=== PATIENT | female | born 1995 | race Caucasian/White ===

== ENCOUNTER 2017-03-20 23:56 | Emergency (ER) | payer MEDICAID ==
[2017-03-21 00:05] VITALS: BP 116/79; PULSE 83; RESP 20; TEMP 98.3; O2SAT 98
--- NOTE | 2017-03-21 00:49 | C.PDOC ---
History Of Present Illness Patient is a 21 year old female who presents to the ER with a complaint of eye redness, itchiness and a dry cough. Patient reports she has been taking hazel D and zyrtec for seasonal allergies with no relief. Denies any fever, nausea, or vomiting. Time Seen by Provider: 03/21/17 00:26 Chief Complaint (Nursing): ENT Problem History Per: Patient History/Exam Limitations: no limitations Onset/Duration Of Symptoms: Hrs Current Symptoms Are (Timing): Still Present Recent travel outside of the [place]: No Past Medical History Reviewed: Historical Data, Nursing Documentation, Vital Signs Vital Signs: Last Vital Signs Temp 98.3 F 03/20/17 23:59 Pulse 83 03/20/17 23:59 Resp 20 03/21/17 01:07 BP 116/79 03/20/17 23:59 Pulse Ox 98 03/21/17 02:14 - Medical History PMH: No Chronic Diseases Surgical History: No Surg Hx Family History: States: Unknown Family Hx - Social History Hx Tobacco Use: No Hx Alcohol Use: No Hx Substance Use: No - Immunization History Hx Tetanus Toxoid Vaccination: No Hx Influenza Vaccination: No Hx Pneumococcal Vaccination: No Review Of Systems Constitutional: Negative for: Fever Eyes: Positive for: Redness, Other (Itchiness) Respiratory: Positive for: Cough (Dry) Gastrointestinal: Negative for: Nausea, Vomiting Physical Exam - Physical Exam Appears: Well, Non-toxic Skin: Normal Color, Warm, Dry Head: Atraumatic, Normacephalic Eye(s): bilateral: Normal Inspection, Other (Minimal conjunctival injection, no purulrnt d/c) Ear(s): Bilateral: Normal Nose: Other (Enlarged turbinates) Oral Mucosa: Moist Throat: Normal, No Erythema, No Exudate Chest: Symmetrical, No Tenderness Cardiovascular: Rhythm Regular, No Murmur Respiratory: Normal Breath Sounds, No Rales, No Rhonchi, No Wheezing Neurological/Psych: Oriented x3, Normal Speech, Normal Cognition ED Course And Treatment O2 Sat by Pulse Oximetry: 98 (Room air) Pulse Ox Interpretation: Normal Disposition Counseled Patient/Family Regarding: Diagnosis, Need For Followup - Disposition Referrals: [facility] at [facility] [Outside] Disposition: HOME/ ROUTINE Disposition Time: 00:46 Condition: STABLE Additional Instructions: Please follow up with PMD Continue allergy tabs Follow up with PMD Return to ER if worse Prescriptions: Mometasone Furoate [Nasonex] 2 spray NS DAILY #1 bottle Olopatadine 0.1% Opht [Patanol 5 Ml] 1 drop OP BID #1 bottle Instructions: Allergic Rhinitis (ED) - Clinical Impression Clinical Impression: Allergic rhinitis - Scribe Statement The provider has reviewed the documentation as recorded by the Scribe Rasheed Silverman All medical record entries made by the Chidiibdougie were at my direction and personally dictated by me. I have reviewed the chart and agree that the record accurately reflects my personal performance of the history, physical exam, medical decision making, and the department course for this patient. I have also personally directed, reviewed, and agree with the discharge instructions and disposition.
== END 2017-03-21 01:07 | disposition home or self-care (01) ==
LOC: C.ER 23:56
DX: J30.9 Allergic rhinitis, unspecified (principal)

== ENCOUNTER 2017-07-23 16:36 | Emergency (ER) | payer MEDICAID ==
[2017-07-23 16:48] VITALS: BP 106/72; PULSE 83; RESP 20; TEMP 98.8; O2SAT 96
--- NOTE | 2017-07-23 17:40 | C.PDOC ---
History Of Present Illness 21 y/o female presents to ED with complaints of cough intermittently with associated fever and mild sore throat. Patient also reports she ran out of asthma pump medicine and is requesting albuterol refill. Patient denies recent travel, vomiting, diarrhea, chest pain, sob or any other complaints at this time. Time Seen by Provider: 07/23/17 16:55 Chief Complaint (Nursing): Cough, Cold, Congestion History Per: Patient History/Exam Limitations: no limitations Onset/Duration Of Symptoms: Days Current Symptoms Are (Timing): Still Present Past Medical History Reviewed: Historical Data, Nursing Documentation, Vital Signs Vital Signs: Last Vital Signs Temp 98.8 F 07/23/17 16:46 Pulse 83 07/23/17 16:46 Resp 20 07/23/17 16:46 BP 106/72 07/23/17 16:46 Pulse Ox 96 07/23/17 21:35 Family History: States: Unknown Family Hx - Social History Hx Tobacco Use: No Hx Alcohol Use: No Hx Substance Use: No - Immunization History Hx Tetanus Toxoid Vaccination: No Hx Influenza Vaccination: No Hx Pneumococcal Vaccination: No Review Of Systems Except As Marked, All Systems Reviewed And Found Negative. Constitutional: Positive for: Fever. Negative for: Chills ENT: Positive for: Throat Swelling Cardiovascular: Negative for: Chest Pain Respiratory: Positive for: Cough. Negative for: Shortness of Breath Gastrointestinal: Negative for: Nausea, Vomiting, Diarrhea Skin: Negative for: Rash Neurological: Negative for: Weakness, Numbness Physical Exam - Physical Exam Appears: Non-toxic, No Acute Distress Skin: Normal Color, Warm, Dry, No Rash Head: Atraumatic, Normacephalic Eye(s): bilateral: Normal Inspection, PERRL, EOMI Ear(s): Bilateral: Normal Oral Mucosa: Moist Throat: Normal, No Erythema Neck: Normal ROM, Supple Chest: Symmetrical Cardiovascular: Rhythm Regular, No Murmur Respiratory: Normal Breath Sounds, No Rales, No Rhonchi, No Wheezing Gastrointestinal/Abdominal: Soft, No Tenderness, No Guarding, No Rebound Back: Normal Inspection, No CVA Tenderness Extremity: Normal ROM Neurological/Psych: Oriented x3, Normal Speech, Normal Motor, Normal Sensation Gait: Steady ED Course And Treatment O2 Sat by Pulse Oximetry: 96 (RA) Pulse Ox Interpretation: Normal Disposition - Disposition Referrals: [facility] at [facility] [Outside] Disposition: HOME/ ROUTINE Disposition Time: 17:37 Condition: GOOD Additional Instructions: Follow up with the medical doctor within 1-2 days, Return if worsened. 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 - Scribe Statement The provider has reviewed the documentation as recorded by the Suzanna Madrid All medical record entries made by the Suzanna were at my direction and personally dictated by me. I have reviewed the chart and agree that the record accurately reflects my personal performance of the history, physical exam, medical decision making, and the department course for this patient. I have also personally directed, reviewed, and agree with the discharge instructions and disposition.
== END 2017-07-23 17:42 | disposition home or self-care (01) ==
LOC: C.ER 16:36
DX: B34.9 Viral infection, unspecified (principal); J06.9 Acute upper respiratory infection, unspecified

== ENCOUNTER 2017-07-28 20:23 | Emergency (ER) | payer MEDICAID ==
[2017-07-28 21:07] VITALS: RESP 18; TEMP 99.1
--- NOTE | 2017-07-28 21:43 | C.PDOC ---
History Of Present Illness 21 year old female who presents to the ER with a complaint of a cold and not feeling well. Patient was seen one week ago for similar complaint but symptoms persist. Patient reports an associated cough with dark brown sputum and notes she was febrile at home with right ear pain and pink eye today. Denies nausea or vomiting. Time Seen by Provider: 07/28/17 21:07 Chief Complaint (Nursing): Cough, Cold, Congestion History Per: Patient History/Exam Limitations: no limitations Onset/Duration Of Symptoms: Days Current Symptoms Are (Timing): Still Present Location Of Pain: None Sick Contacts (Context): None Associated Symptoms: Cough, Sputum. denies: Nausea, Vomiting Recent travel outside of the [place]: No Past Medical History Reviewed: Historical Data, Nursing Documentation, Vital Signs Vital Signs: Last Vital Signs Temp 99.1 F 07/28/17 21:06 Pulse 85 07/28/17 21:06 Resp 18 07/28/17 21:06 BP 116/80 07/28/17 21:06 Pulse Ox 100 07/28/17 22:04 - Medical History PMH: No Chronic Diseases Surgical History: No Surg Hx Family History: States: Unknown Family Hx - Social History Hx Tobacco Use: No Hx Alcohol Use: No Hx Substance Use: No - Immunization History Hx Tetanus Toxoid Vaccination: No Hx Influenza Vaccination: No Hx Pneumococcal Vaccination: No Review Of Systems Constitutional: Positive for: Malaise Eyes: Positive for: Redness ENT: Positive for: Ear Pain. Negative for: Ear Discharge Respiratory: Positive for: Cough, Sputum Gastrointestinal: Negative for: Nausea, Vomiting Physical Exam - Physical Exam Appears: Non-toxic, Other (Uncomfortable) Skin: Normal Color, Warm, Dry Head: Atraumatic, Normacephalic Eye(s): right: Normal Inspection, left: Other (Erythematous conjunctiva) Ear(s): Left: Normal, Right: TM Obscured By Wax Nose: Normal, No Flaring Oral Mucosa: Moist Throat: Erythema, Exudate (Enlarged tonsils) Neck: Normal, Supple Lymphatic: Other (Tender submandibular nodes) Chest: Symmetrical, No Tenderness Cardiovascular: Rhythm Regular (Tachycardic), No Murmur Respiratory: Normal Breath Sounds, No Rales, No Rhonchi, No Wheezing Gastrointestinal/Abdominal: Soft, No Tenderness Neurological/Psych: Oriented x3, Normal Speech, Normal Cognition ED Course And Treatment O2 Sat by Pulse Oximetry: 100 (Room air) Pulse Ox Interpretation: Normal Medical Decision Making Medical Decision Making: Plan: Upreg Antibiotics 958 pm pt still sympotomatic after one week with worsening symnptmsl; will d/c with zpak and polytrim Disposition Counseled Patient/Family Regarding: Diagnosis, Need For Followup, Rx Given - Disposition Referrals: [facility] [Outside] [facility] [Outside] Disposition: HOME/ ROUTINE Disposition Time: 21:59 Condition: STABLE Prescriptions: Azithromycin [Zithromax] 250 mg PO DAILY #4 tab Polymyxin/Trimethoprim Sulfate [Polytrim Ophth Soln] 1 drop OS Q6 #1 bottle Instructions: Upper Respiratory Infection (ED), Conjunctivitis (ED) Forms: [employer] (Urdu), General Discharge Instructions - Clinical Impression Clinical Impression: Conjunctivitis, Upper respiratory infection - Scribe Statement The provider has reviewed the documentation as recorded by the Scribe Rasheed Silverman All medical record entries made by the Scribe were at my direction and personally dictated by me. I have reviewed the chart and agree that the record accurately reflects my personal performance of the history, physical exam, medical decision making, and the department course for this patient. I have also personally directed, reviewed, and agree with the discharge instructions and disposition.
[2017-07-28 22:17] VITALS: BP 111/70; PULSE 71
[2017-08-04 10:36] VITALS: O2SAT 100
== END 2017-07-28 22:24 | disposition home or self-care (01) ==
LOC: C.ER 20:23
DX: J06.9 Acute upper respiratory infection, unspecified (principal); H10.9 Unspecified conjunctivitis

== ENCOUNTER 2017-09-01 00:38 | Emergency (ER) | payer MEDICAID ==
--- NOTE | 2017-09-01 01:21 | C.PDOC ---
History Of Present Illness 21 yo female come in for evaluation of Left foot contusion over 4th toe. Pt sts , " something heavy felt on my toe early today at work". Pt admits, was ambulatory after injury with gradully developed discomfort, noted some brusing to Left 4th toe. Otherwise, pt denies deformity, weakness, sensory or vascular deficits to Left foot. Ambulate to ED for evaluation, not in any apparent distress. Time Seen by Provider: 09/01/17 00:53 Chief Complaint (Nursing): Lower Extremity Problem/Injury History Per: Patient Past Medical History Reviewed: Historical Data, Nursing Documentation, Vital Signs Vital Signs: Last Vital Signs Temp 98.1 F 09/01/17 00:45 Pulse 64 09/01/17 00:45 Resp 16 09/01/17 00:45 BP 119/76 09/01/17 00:45 Pulse Ox 99 09/01/17 01:21 - Medical History PMH: No Chronic Diseases Surgical History: No Surg Hx Family History: States: Unknown Family Hx - Social History Hx Tobacco Use: No Hx Alcohol Use: No Hx Substance Use: No - Immunization History Hx Tetanus Toxoid Vaccination: No Hx Influenza Vaccination: No Hx Pneumococcal Vaccination: No Review Of Systems Except As Marked, All Systems Reviewed And Found Negative. Constitutional: Negative for: Fever, Chills Musculoskeletal: Positive for: Foot Pain Skin: Positive for: Bruising Neurological: Negative for: Weakness, Numbness Physical Exam - Physical Exam Appears: Well, Non-toxic, No Acute Distress Skin: Normal Color, Warm, Ecchymosis (Left 4th toe) Extremity: Normal ROM (Left foot), Tenderness (Left 4th toe with trace ecchymoses over proximal phalanx), Capillary Refill (less than 2sec to Left foot ), No Deformity, No Swelling Neurological/Psych: Oriented x3, Normal Speech, Normal Motor, Normal Sensation, Normal Reflexes ED Course And Treatment O2 Sat by Pulse Oximetry: 99 - Other Rad Lef t4th toe X-Ray: Interpreted by Me, Viewed By Me Interpretation: (+)fx of proximal aspect 4th distal phalanx through IPJ Progress Note: On re-eval, pt is afebrile, hemodynamicaly stable. non-toxic. Ambulaoty rin ED. Left foot: exam c/w 4th toe contusion, no deformity, FAROM, no neurovascular deficits. Xray: (+)left 4th distal fx through IPJ. Marly tap to Left 4th and 5th toes applied, cast shoe applied to Let foot. pT advised on course of ds. ref. to F/u with Valve Technician in 2-3 days for re-eavl. return if any new changes. Disposition Counseled Patient/Family Regarding: Studies Performed, Diagnosis, Need For Followup, Rx Given - Disposition Referrals: [facility] [Outside] [facility] [Outside] Disposition: HOME/ ROUTINE Disposition Time: 01:55 Condition: STABLE Additional Instructions: MARLY TAPE TO LEFT 4TH TOE FOR 2-3 WEEKS, CAST SHOE TAKE TYLENOL FOR PAIN FOLLOW UP WITH [facility] AT [facility] OR [facility] ON THURSDAY FROM NOON-3PM FOR RE-EVALUATION. RETURN TO ED IF ANY WORSENING OR NEW CHANGES. Instructions: Toe Fracture (ED) Forms: [employer] (Maltese) - Clinical Impression Clinical Impression: Toe fracture
[2017-09-01 03:22] VITALS: BP 112/77; PULSE 88; RESP 18; TEMP 97.2; O2SAT 98
--- NOTE | 2017-09-01 07:35 | RAD ---
PROCEDURE: Left Foot Radiographs. HISTORY: injury COMPARISON: None. FINDINGS: BONES: There is an oblique mildly displaced fracture of the 4th distal phalanx base medially with involvement of the articular surface and associated soft tissue swelling. An os naviculare is noted. JOINTS: No dislocation seen. Bony articulations appear maintained. SOFT TISSUES: As above OTHER FINDINGS: None. IMPRESSION: Fracture 4th distal phalanx as above
== END 2017-09-01 02:45 | disposition home or self-care (01) ==
LOC: C.ER 00:38
DX: S92.532A Displaced fracture of distal phalanx of left lesser toe(s), initial encounter for closed fracture (principal); W20.8XXA Other cause of strike by thrown, projected or falling object, initial encounter; Y93.89 Activity, other specified; Y92.89 Other specified places as the place of occurrence of the external cause; Y99.0 Civilian activity done for income or pay